=== PATIENT | female | born 1995 ===

== ENCOUNTER → 2017-01-22 | Outpatient (CLI) | payer BC ==
--- NOTE | 2017-01-22 15:39 | DIAGNOSTIC IMAGING REPORT ---
LEFT FOOT MIN 3 VIEWS CLINICAL HISTORY: Left foot pain. Possible stress fracture. COMPARISON: None. DISCUSSION: No fractures are visualized. There is no evidence of pathologic periostitis. There are no subluxations. There is no erosive disease. IMPRESSION: No fractures are visualized on conventional radiographic imaging Electronically signed by: Kp Patterson M.D. 01/22/2017 3:37 PM Dictated Date/Time: 01/22/2017 3:36 PM
== END | disposition home or self-care (01) ==
LOC: C.RDSM 08:00
PROVIDERS: ATTEND Internal Medicine
DX: M79.672 Pain in left foot (principal)